=== PATIENT | female | born 1950 | race Caucasian/White ===

== ENCOUNTER 2023-02-09 08:40 | Outpatient (OUT) | payer MEDICARE, SELFPAY | END 2023-02-09 08:41 | disposition home or self-care (01) | LOC: WC 08:40 | PROVIDERS: PCP Podiatrist Foot & Ankle Surgery; Visit Provider Podiatrist Foot & Ankle Surgery | DX: I87.311 Chronic venous hypertension (idiopathic) with ulcer of right lower extremity (principal); L97.811 Non-pressure chronic ulcer of other part of right lower leg limited to breakdown of skin | CPT/HCPCS: 29580; G0463 ==

== ENCOUNTER 2023-02-22 15:10 | Outpatient (OUT) | payer MEDICARE, SELFPAY | END 2023-02-22 15:11 | disposition home or self-care (01) | LOC: WC 15:10 | PROVIDERS: PCP Podiatrist Foot & Ankle Surgery; Visit Provider Physician Assistant | DX: I87.311 Chronic venous hypertension (idiopathic) with ulcer of right lower extremity (principal); L97.811 Non-pressure chronic ulcer of other part of right lower leg limited to breakdown of skin | CPT/HCPCS: G0463 ==

== ENCOUNTER 2023-03-03 15:17 | Outpatient (RCR) | payer MEDICARE, SELFPAY | END 2023-04-01 15:19 | disposition home or self-care (01) | LOC: OT 15:17 | PROVIDERS: PCP Podiatrist Foot & Ankle Surgery; Visit Provider Podiatrist Foot & Ankle Surgery | DX: I89.0 Lymphedema, not elsewhere classified (principal) | CPT/HCPCS: 97140; 97166; 97535 ==

== ENCOUNTER 2023-07-14 15:19 | Outpatient (RCR) | payer MEDICARE, SELFPAY | END 2023-08-21 11:13 | disposition home or self-care (01) | LOC: PT 15:19 | PROVIDERS: PCP Podiatrist Foot & Ankle Surgery | DX: G57.01 Lesion of sciatic nerve, right lower limb (principal); M53.3 Sacrococcygeal disorders, not elsewhere classified; M96.1 Postlaminectomy syndrome, not elsewhere classified | CPT/HCPCS: 20561; 97010; 97110; 97140; 97163; 97530; G0283 ==

== ENCOUNTER 2024-07-14 10:28 | Outpatient (RCR) | payer MEDICARE, SELFPAY | END 2024-08-25 07:39 | disposition home or self-care (01) | LOC: PT 10:28 | PROVIDERS: PCP Podiatrist Foot & Ankle Surgery; Visit Provider Physical Medicine & Rehabilitation Sports Medicine | DX: M53.3 Sacrococcygeal disorders, not elsewhere classified (principal); G89.29 Other chronic pain; M54.16 Radiculopathy, lumbar region | CPT/HCPCS: 97110; 97140; 97163 ==